=== PATIENT | female | born 1965 | race Caucasian/White ===

== ENCOUNTER 2016-09-13 00:04 | Emergency (ER) | payer OTHER ==
[~2016-09-13] VITALS: Ht 160 cm; Wt 64.5 kg
[2016-09-13 01:10] LABS: HEMATOCRIT 42.1 % (36.0-46.0); MCH 31.5 PG (29.0-34.0); MCV 92.7 FL (83-99); MEAN PLAT.VOLUME 10.9 uM^3 (9.5-12.4); PLATELET COUNT 222 K/uL (156-360); RBC DIS.WIDTH-CV 12.7 % (11.8-14.6); RBC DIS.WIDTH-SD 43.5 % (39-53); RED BLOOD COUNT 4.54 M/uL (3.80-5.20); WHITE BLOOD COUNT 5.4 K/uL (4.1-10.2)
[2016-09-13 01:22] LABS: CHLORIDE 106 mEq/L (99-109); POTASSIUM 4.1 mEq/L (3.7-5.4); SODIUM 140 mEq/L (136-147)
[2016-09-13 01:23] LABS: GLUCOSE 98 mg/dL (70-99)
[2016-09-13 01:25] LABS: ANION GAP 7 MEQ/L (2-14)
[2016-09-13 01:27] LABS: GFR ESTIMATE (CALCULATED) > 59 mL/min/
[2016-09-13 01:56] LABS: ADD MIUA? NO; BILIRUBIN NEGATIVE; BLOOD NEGATIVE; COLOR YELLOW ((YELLOW)); GLUCOSE (STRIP) NEGATIVE; KETONES NEGATIVE; LEUKOCYTES NEGATIVE; NITRITE NEGATIVE; PROTEIN (STRIP) NEGATIVE; SPECIFIC GRAVITY 1.017 (1.000-1.030); UCUL ADDED? NO; UROBILINOGEN 0.2 MG/DL (0.2-1.0)
[2016-09-13 02:22] LABS: UREA NITROGEN (BUN) 17 mg/dL (9-23)
[2016-09-13] MEDS ORDERED: VALIUM5 MG PO (03:36)
[2016-09-13] MEDS ORDERED: NORCO 5/3251 TABLET PO (03:36)
[2016-09-13 04:05] VITALS: BP 149/94
== END 2016-09-13 04:05 | disposition home or self-care (01) ==
LOC: EME 00:04
DX: M62.830 Muscle spasm of back (principal); M54.5 Low back pain
CPT/HCPCS: 80048; 81003; 85027; 99281; 99284; J1885